=== PATIENT | male | born 1950 | race Caucasian/White ===

== ENCOUNTER 2023-03-05 06:46 | Emergency (ER) | payer MEDICARE, MEDICAID ==
[~2023-03-05] VITALS: Ht 177.8 cm; Wt 73.0 kg
[~2023-03-05 06:46] MED LIST: IBUP-2028 MT; PERM60CR4 TP; PIPE118S11 TP
[2023-03-05 06:51] VITALS: BP 135/82; PULSE 70; RESP 18; TEMP 98.8; O2SAT 97
== END 2023-03-05 08:00 | disposition left against medical advice (07) ==
LOC: ER 06:58
DX: T14.8XXA Other injury of unspecified body region, initial encounter (principal); Z53.21 Procedure and treatment not carried out due to patient leaving prior to being seen by health care provider
CPT/HCPCS: 99281

== ENCOUNTER 2023-12-05 00:46 | Emergency (ER) | payer MEDICARE, MEDICAID ==
[~2023-12-05] VITALS: Ht 175.3 cm; Wt 73.0 kg
[~2023-12-05 00:46] MED LIST changes: -IBUP-2028 MT; +LIDO700A30 TOP; -PERM60CR4 TP; -PIPE118S11 TP
[2023-12-05 01:26] VITALS: PULSE 80; RESP 24; O2SAT 99
[2023-12-05] MEDS: ALBUTEROL (0.5%) 2.5MG/0.5ML NEB HHN ONE ×2 (01:26→03:09)
[2023-12-05 01:38] LABS: BG BASE EXCESS 2.3 mmol/L (-2.0-3.0); BG CARBOXYHEMOGLOBIN 2.8 % (0.5-1.5); BG DEOXYHEMOGLOBIN 5.9 % (0.0-5.0); BG FRACTION INSPIRED OXYGEN 21; BG HCO3 ACT 27.4 mmol/L (21.0-28.0); BG METHEMOGLOBIN 0.1 % (0.5-1.5); BG OXYGEN SATURATION 93.9 % (94.0-98.0); BG OXYHEMOGLOBIN 91.2 % (94.0-98.0); BG PCO2 44.4 mmHg (35.0-48.0); BG PH 7.408 (7.350-7.450); BG PO2 74.4 mmHg (83.0-108.0); BG SAMPLE SITE RIGHT RADIAL; BG TOTAL HEMOGLOBIN 12.7 g/dL (13.5-17.5); BG VENT MODE ROOM AIR
[2023-12-05 01:51] LABS: BASOPHILS % 0.6 % (0.0-2.0); EOSINOPHILS % 4.4 % (0.0-5.0); HEMATOCRIT. 35.3 % (42.0-52.0); HEMOGLOBIN. 11.9 g/dL (14.0-18.0); LYMPHOCYTES % 17.3 % (20.0-50.0); MEAN CORPUSCULAR HEMOGLOBIN 28.6 pg (28.0-32.0); MEAN CORPUSCULAR HGB CONC 33.7 g/dL (31.0-37.0); MEAN PLATELET VOLUME 7.1 fl (7.4-10.4); MONOCYTES % 8.2 % (2.0-8.0); NEUTROPHILS % 69.5 % (40.0-76.0); PLATELET 210 x1000/uL (130-400); RED BLOOD CELL COUNT 4.15 mill/uL (4.7-6.1); RED CELL DISTRIBUTION WIDTH 14.5 % (11.6-14.6); WHITE BLOOD COUNT 6.4 x1000/uL (4.5-11.0)
[2023-12-05 02:08] LABS: CHLORIDE 107 mEq/L (98-107); POTASSIUM 3.8 mEq/L (3.5-5.1); SODIUM 140 mEq/L (136-145)
[2023-12-05 02:09] LABS: CARBON DIOXIDE 30 mEq/L (21-32)
[2023-12-05 02:13] LABS: PARTIAL THROMBOPLASTIN TIME 38.4 sec (23.4-31.0); PROTHROMBIN TIME 10.8 sec (9.6-11.0)
[2023-12-05 02:14] LABS: GLUCOSE 98 mg/dL (70-105); UREA NITROGEN BLOOD 20 mg/dL (9-23)
[2023-12-05 02:15] LABS: TROPONIN I HIGH SENSITIVITY 4 ng/L (3.0-53)
[2023-12-05 02:28] LABS: CREATININE 1.4 mg/dL (0.6-1.3); ETHANOL BLOOD < 10 mg/dL (<10)
[2023-12-05] MEDS: METHYLPREDNISOLONE SOD SUCC 125MG/2ML (ACT-O-VIAL) IV ONE (03:01)
[2023-12-05] MEDS: ACETAMINOPHEN 1000MG/100ML 100 ML IV ONE (03:01)
[2023-12-05] MEDS: IPRATROPIUM BROMIDE (0.02%) 0.5MG/2.5ML NEB HHN ONE (03:08)
[2023-12-05 03:09] VITALS: PULSE 75; RESP 24; O2SAT 91
[2023-12-05 05:52] LABS: CLARITY URINE CLEAR (CLEAR); COLOR URINE YELLOW (YELLOW); GLUCOSE URINE NEGATIVE (NEGATIVE); KETONES URINE NEGATIVE (NEGATIVE); LEUKOCYTE ESTERASE URINE NEGATIVE (NEGATIVE); NITRITE URINE NEGATIVE (NEGATIVE); OCCULT BLOOD URINE NEGATIVE (NEGATIVE); PH URINE 6.5 (4.5-8.0); PROTEIN URINE NEGATIVE (NEGATIVE); SPECIFIC GRAVITY URINE 1.012 (1.005-1.030)
[2023-12-05] MEDS ORDERED: IPRATROPIUM/ALBUTEROL 0.5-3(2.5)MG/3ML NEB HHN PRN (06:30)
[2023-12-05] MEDS ORDERED: DOCUSATE SODIUM 100MG CAPSULE PO PRN (06:30)
[2023-12-05] MEDS ORDERED: MAGNESIUM/ALUMINUM HYDROXIDE/SIMETHICONE 30ML UDC PO PRN (06:30)
[2023-12-05] MEDS ORDERED: AMLODIPINE 5MG TABLET PO SCH (06:30)
[2023-12-05] MEDS ORDERED: CLONIDINE 0.1MG TABLET PO PRN (06:30)
[2023-12-05] MEDS ORDERED: ONDANSETRON HCL 4MG/2ML INJ IV PRN (06:30)
[2023-12-05] MEDS ORDERED: LACTATED RINGERS 1,000 ML IV SCH (06:30)
[2023-12-05] MEDS ORDERED: ACETAMINOPHEN 325MG TABLET PO PRN ×2 (06:30)
[2023-12-05] MEDS ORDERED: GUAIFENESIN 200MG/10ML SUGAR FREE UDC PO PRN (06:30)
[2023-12-05 06:45] VITALS: BP 118/70; PULSE 90; RESP 17; TEMP 36.78072; O2SAT 97
[2023-12-05] MEDS ORDERED: ASPIRIN 81MG EC TABLET PO SCH (09:00)
[2023-12-05] MEDS ORDERED: ENOXAPARIN 40MG/0.4ML SYR SUBCUT SCH (09:00)
[2023-12-05] MEDS ORDERED: BUDESONIDE 0.5MG/2ML NEB HHN SCH (09:00)
[2023-12-05 09:09] LABS: IRON 74 ug/dL (65-175); TRIGLYCERIDE 86 mg/dL (0-150)
[2023-12-05 09:10] LABS: LDL CHOLESTEROL 81 mg/dL (5-100)
[2023-12-05 09:11] LABS: CHOLESTEROL 154 mg/dL (<200); HDL CHOLESTEROL 57 mg/dL (>55)
[2023-12-05 09:12] LABS: TOTAL IRON BINDING CAPACITY 254 ug/dl (250-425)
[2023-12-05 09:16] LABS: T4 FREE 0.95 ng/dL (0.89-1.76); THYROID STIMULATING HORMONE 0.72 uIU/mL (0.55-4.78)
[2023-12-05] MEDS ORDERED: IPRATROPIUM/ALBUTEROL 0.5-3(2.5)MG/3ML NEB HHN SCH (12:00)
[2023-12-05] MEDS ORDERED: FAMOTIDINE 20MG TABLET PO SCH (21:00)
[2023-12-06 10:34] LABS: *AMPHETAMINES SCREEN URINE NEGATIVE (NEGATIVE); *BARBITURATES SCREEN URINE NEGATIVE (NEGATIVE)
[2023-12-06 10:35] LABS: *BENZODIAZEPINES SCREEN URINE NEGATIVE (NEGATIVE); *COCAINE SCREEN URINE PRESUMPTIVE POSITIVE (NEGATIVE); CANNABINOID URINE SCREEN NEGATIVE (NEGATIVE); ECSTASY MDMA SCREEN URINE NEGATIVE (NEGATIVE); METHADONE URINE SCREEN NEGATIVE (NEGATIVE); OPIATES URINE SCREEN NEGATIVE (NEGATIVE); PHENCYCLIDINE URINE SCREEN NEGATIVE (NEGATIVE)
[2024-01-03] MEDS ORDERED: CEPH500C2 MT (17:32)
[2024-01-09] MEDS ORDERED: SULF1TAB48 MT (14:31)
[2024-01-15] MEDS ORDERED: LOSA100T33 PO (14:28)
[2024-01-15] MEDS ORDERED: ATOR10TA69 PO (14:28)
== END 2023-12-05 06:57 | disposition short-term general hospital (02) ==
LOC: ER 00:46
DX: S00.01XA Abrasion of scalp, initial encounter (principal); S00.03XA Contusion of scalp, initial encounter; J96.01 Acute respiratory failure with hypoxia; J44.1 Chronic obstructive pulmonary disease with (acute) exacerbation; F17.210 Nicotine dependence, cigarettes, uncomplicated; F14.10 Cocaine abuse, uncomplicated; I11.0 Hypertensive heart disease with heart failure; I50.9 Heart failure, unspecified; E11.9 Type 2 diabetes mellitus without complications; D64.9 Anemia, unspecified; Z86.73 Personal history of transient ischemic attack (TIA), and cerebral infarction without residual deficits; Z88.0 Allergy status to penicillin; W18.39XA Other fall on same level, initial encounter; Y93.89 Activity, other specified; Y92.89 Other specified places as the place of occurrence of the external cause; Y99.8 Other external cause status
CPT/HCPCS: 80061; 80305; 80048; 81003; 80320; 82728; 82962; 83880; 84439; 83540; 83550; 84443; 85025; 85610; 85730; 84484; 36415; 71045; 70450; 72125; 94640; 82805; 82375; 93005; 96365; 96375; 99285; 36600; J2919; G0480; J0131

== ENCOUNTER 2024-05-24 09:22 | Emergency (ER) | payer MEDICARE, MEDICAID ==
[~2024-05-24] VITALS: Ht 180.3 cm; Wt 59.0 kg
[~2024-05-24 09:22] MED LIST changes: +ATOR10TA69 PO; +LOSA100T33 PO
[2024-05-24 09:26] VITALS: O2SAT 96
[2024-05-24 10:38] LABS: CHLORIDE 101 mEq/L (98-107); POTASSIUM 4.3 mEq/L (3.5-5.1); SODIUM 138 mEq/L (136-145)
[2024-05-24 10:39] LABS: CALCIUM 9.8 mg/dL (8.7-10.4); CARBON DIOXIDE 30 mEq/L (21-32)
[2024-05-24 10:44] LABS: GLUCOSE 103 mg/dL (70-105); UREA NITROGEN BLOOD 23 mg/dL (9-23)
[2024-05-24 10:46] LABS: BASOPHILS % 0.5 % (0.0-2.0); EOSINOPHILS % 5.7 % (0.0-5.0); HEMATOCRIT. 40.4 % (42.0-52.0); HEMOGLOBIN. 12.8 g/dL (14.0-18.0); LYMPHOCYTES % 28.6 % (20.0-50.0); MEAN CORPUSCULAR HEMOGLOBIN 26.5 pg (28.0-32.0); MEAN CORPUSCULAR HGB CONC 31.8 g/dL (31.0-37.0); MEAN CORPUSCULAR VOLUME 83.5 fL (80.0-94.0); MEAN PLATELET VOLUME 7.8 fl (7.4-10.4); MONOCYTES % 9.5 % (2.0-8.0); NEUTROPHILS % 55.7 % (40.0-76.0); PLATELET 208 x1000/uL (130-400); RED BLOOD CELL COUNT 4.84 mill/uL (4.7-6.1)
[2024-05-24 10:47] LABS: TROPONIN I HIGH SENSITIVITY < 4 ng/L (3.0-53)
[2024-05-24 10:56] VITALS: BP 134/81; PULSE 59; RESP 18; TEMP 36.7; O2SAT 96
[2024-05-24] MEDS: KETOROLAC 30MG/ML VIAL IV STA (10:56)
== END 2024-05-24 11:26 | disposition home or self-care (01) ==
LOC: ER 09:37
DX: R07.89 Other chest pain (principal); E11.9 Type 2 diabetes mellitus without complications; I11.0 Hypertensive heart disease with heart failure; I50.9 Heart failure, unspecified; J44.9 Chronic obstructive pulmonary disease, unspecified; F03.90 Unspecified dementia, unspecified severity, without behavioral disturbance, psychotic disturbance, mood disturbance, and anxiety; F19.90 Other psychoactive substance use, unspecified, uncomplicated; Z79.899 Other long term (current) drug therapy; Z86.73 Personal history of transient ischemic attack (TIA), and cerebral infarction without residual deficits; Z88.0 Allergy status to penicillin; Z88.1 Allergy status to other antibiotic agents
CPT/HCPCS: 99284; 96374; 71045; 80048; 83880; 85025; 84484; 36415; J1885; A4606

== ENCOUNTER 2024-11-25 07:02 | Inpatient (IN) | payer MEDICARE, MEDICAID ==
[~2024-11-25] VITALS: Ht 172.7 cm; Wt 71.4 kg
[2024-11-25 08:35] LABS: CREATININE 1.3 mg/dL (0.6-1.3)
[2024-11-25 08:36] LABS: ETHANOL BLOOD < 10 mg/dL (<10); UREA NITROGEN BLOOD 28 mg/dL (9-23)
[2024-11-25 08:37] LABS: ASPARTATE AMINOTRANSFERASE 22 IU/L (<34); BILIRUBIN DIRECT 0.1 mg/dL (<=3.0)
[2024-11-25 08:38] LABS: BILIRUBIN TOTAL 0.4 mg/dL (0.1-1.0); PROTEIN TOTAL 6.4 g/dL (6.0-8.3)
[2024-11-25] MEDS: IPRATROPIUM/ALBUTEROL 0.5-3(2.5)MG/3ML NEB HHN ONE (08:46)
[2024-11-25 08:52] VITALS: PULSE 50; RESP 18; O2SAT 98
[2024-11-25 09:07] LABS: BASOPHILS % 0.8 % (0.0-2.0); EOSINOPHILS % 9.6 % (0.0-5.0); HEMATOCRIT. 41.5 % (42.0-52.0); HEMOGLOBIN. 13.9 g/dL (14.0-18.0); LYMPHOCYTES % 16.1 % (20.0-50.0); MEAN PLATELET VOLUME 7.9 fl (7.4-10.4); MONOCYTES % 9.0 % (2.0-8.0); NEUTROPHILS % 64.5 % (40.0-76.0); PLATELET 162 x1000/uL (130-400); RED BLOOD CELL COUNT 4.85 mill/uL (4.7-6.1); RED CELL DISTRIBUTION WIDTH 14.9 % (11.6-14.6)
[2024-11-25 09:17] LABS: INR 0.9
[2024-11-25 10:18] LABS: BG DEOXYHEMOGLOBIN 40.4 % (0.0-5.0)
[2024-11-25 10:36] LABS: INFLUENZA TYPE A Presumptive Negative (Pres. Neg.); INFLUENZA TYPE B Presumptive Negative (Pres. Neg.)
[2024-11-25 10:37] LABS: RESPIRATORY SYNCYTIAL VIRUS Not Detected (Not Detectd)
[2024-11-25] MEDS: AMLODIPINE 10MG TABLET PO SCH (11:30)
[2024-11-25] MEDS ORDERED: ACETAMINOPHEN 325MG TABLET PO PRN ×2 (11:30)
[2024-11-25] MEDS ORDERED: ONDANSETRON HCL 4MG/2ML INJ IV PRN (11:30)
[2024-11-25] MEDS ORDERED: IPRATROPIUM/ALBUTEROL 0.5-3(2.5)MG/3ML NEB HHN PRN (11:45)
[2024-11-25] MEDS: GUAIFENESIN/DM 600MG/30MG ER TAB 12HR PO SCH (11:45)
[2024-11-25] MEDS ORDERED: HYDRALAZINE 20MG/ML VIAL IV PRN (12:15)
[2024-11-25 12:30] VITALS: BP 159/87; PULSE 71; RESP 18; TEMP 36.6; O2SAT 97
[2024-11-25 13:00] LABS: CLARITY URINE CLEAR (CLEAR); COLOR URINE YELLOW (YELLOW); GLUCOSE URINE NEGATIVE (NEGATIVE); KETONES URINE NEGATIVE (NEGATIVE); LEUKOCYTE ESTERASE URINE NEGATIVE (NEGATIVE); NITRITE URINE NEGATIVE (NEGATIVE); OCCULT BLOOD URINE NEGATIVE (NEGATIVE); PH URINE 6.5 (4.5-8.0); PROTEIN URINE NEGATIVE (NEGATIVE); SPECIFIC GRAVITY URINE 1.018 (1.005-1.030); UROBILINOGEN URINE 0.2 E.U./dL (0.2-1.0)
[2024-11-25 13:20] LABS: *AMPHETAMINES SCREEN URINE NEGATIVE (NEGATIVE); *BARBITURATES SCREEN URINE NEGATIVE (NEGATIVE); *BENZODIAZEPINES SCREEN URINE NEGATIVE (NEGATIVE); *COCAINE SCREEN URINE PRESUMPTIVE POSITIVE (NEGATIVE); CANNABINOID URINE SCREEN NEGATIVE (NEGATIVE); METHADONE URINE SCREEN NEGATIVE (NEGATIVE); OPIATES URINE SCREEN NEGATIVE (NEGATIVE); PHENCYCLIDINE URINE SCREEN NEGATIVE (NEGATIVE)
[2024-11-25 13:21] LABS: ECSTASY MDMA SCREEN URINE NEGATIVE (NEGATIVE)
[2024-11-25 14:11] LABS: PHOSPHORUS 2.8 mg/dL (2.5-4.9)
[2024-11-25] MEDS: FOLIC ACID 1 MG, THIAMINE HCL 100 MG, MVI, ADULT NO.1 10 ML in DEXTROSE 5% WATER 1,000 ML IV ONE (14:14)
[2024-11-25 15:36] VITALS: BP 159/87; PULSE 71; RESP 18; TEMP 36.5848
[2024-11-25 16:46] VITALS: BP 112/67; PULSE 53; RESP 20; TEMP 37; O2SAT 98
[2024-11-25] MEDS: FERROUS SULFATE 300MG/5ML UDC PO SCH (18:07)
[2024-11-25] MEDS: MONTELUKAST SODIUM 10MG TABLET PO SCH (18:07)
[2024-11-25] MEDS ORDERED: DEXTROSE 50% WATER 50ML SYRINGE IV PRN (18:30)
[2024-11-25 20:00] VITALS: BP 169/78; PULSE 62; RESP 20; TEMP 36.6; O2SAT 97
[2024-11-25 20:25] LABS: TROPONIN I HIGH SENSITIVITY 5 ng/L (3.0-53)
[2024-11-25] MEDS: INSULIN LISPRO 100 UNITS/ML SUBCUT SCH (21:00)
[2024-11-25] MEDS: BLOOD SUGAR DIAGNOSTIC STRIP TEST SCH (21:31)
[2024-11-25] MEDS: ENOXAPARIN 40MG/0.4ML SYR SUBCUT SCH (21:33)
[2024-11-25] MEDS: ATORVASTATIN CALCIUM 40MG TABLET PO SCH (21:33)
[2024-11-26] VITALS (8 sets, daily range): BP systolic 144–184; BP diastolic 70–78; PULSE 64–95; RESP 18–22; TEMP 36.6–37.1; O2SAT 95–98
[2024-11-26 06:57] LABS: BASOPHILS % 0.8 % (0.0-2.0); EOSINOPHILS % 9.7 % (0.0-5.0); HEMATOCRIT. 42.5 % (42.0-52.0); HEMOGLOBIN. 14.2 g/dL (14.0-18.0); LYMPHOCYTES % 18.0 % (20.0-50.0); MEAN PLATELET VOLUME 8.2 fl (7.4-10.4); MONOCYTES % 8.6 % (2.0-8.0); NEUTROPHILS % 62.9 % (40.0-76.0); PLATELET 186 x1000/uL (130-400); RED BLOOD CELL COUNT 5.00 mill/uL (4.7-6.1); RED CELL DISTRIBUTION WIDTH 15.0 % (11.6-14.6)
[2024-11-26 07:08] LABS: CREATININE 1.1 mg/dL (0.6-1.3); TRIGLYCERIDE 92 mg/dL (0-150); UREA NITROGEN BLOOD 18 mg/dL (9-23)
[2024-11-26 07:09] LABS: LDL CHOLESTEROL 75 mg/dL (5-100); TROPONIN I HIGH SENSITIVITY 4 ng/L (3.0-53)
[2024-11-26 07:12] LABS: T4 FREE 1.03 ng/dL (0.89-1.76)
[2024-11-26] MEDS: PREDNISONE 20MG TABLET PO SCH (08:59)
[2024-11-26] MEDS: AZITHROMYCIN 500 MG TABLET PO SCH (08:59)
[2024-11-26] MEDS: CLONIDINE 0.1MG TABLET PO PRN (09:00)
[2024-11-26] MEDS: IPRATROPIUM/ALBUTEROL 0.5-3(2.5)MG/3ML NEB HHN SCH (12:37)
[2024-11-26 12:58] LABS: ASPARTATE AMINOTRANSFERASE 27 IU/L (<34); BILIRUBIN DIRECT 0.1 mg/dL (<=3.0)
[2024-11-26 12:59] LABS: BILIRUBIN TOTAL 0.5 mg/dL (0.1-1.0); PROTEIN TOTAL 6.4 g/dL (6.0-8.3)
[2024-11-26] MEDS: BUDESONIDE 0.5MG/2ML NEB HHN SCH (20:51)
[2024-11-26] MEDS: LOSARTAN 50 MG TABLET PO SCH (21:49)
[2024-11-27 00:27] VITALS: BP 149/93; PULSE 104; RESP 19; TEMP 36.9; O2SAT 95
[2024-11-27 01:38] VITALS: PULSE 87; RESP 20; O2SAT 95
[2024-11-27 04:00] VITALS: BP 142/77; PULSE 101; RESP 19; TEMP 36.8; O2SAT 95
[2024-11-27] MEDS ORDERED: HYDRALAZINE 10 MG in SODIUM CHLORIDE 0.9% 49.5 ML IV PRN (09:00)
[2024-11-27] MEDS: CLONIDINE 0.1MG TABLET PO NR (10:55)
[2024-11-27 11:44] LABS: BASOPHILS % 0.7 % (0.0-2.0); EOSINOPHILS % 4.5 % (0.0-5.0); HEMATOCRIT. 43.1 % (42.0-52.0); HEMOGLOBIN. 14.3 g/dL (14.0-18.0); LYMPHOCYTES % 16.4 % (20.0-50.0); MEAN PLATELET VOLUME 8.1 fl (7.4-10.4); MONOCYTES % 8.4 % (2.0-8.0); NEUTROPHILS % 70.0 % (40.0-76.0); PLATELET 193 x1000/uL (130-400); RED BLOOD CELL COUNT 5.06 mill/uL (4.7-6.1); RED CELL DISTRIBUTION WIDTH 14.9 % (11.6-14.6)
[2024-11-27 12:03] LABS: CREATININE 1.1 mg/dL (0.6-1.3); UREA NITROGEN BLOOD 19 mg/dL (9-23)
[2024-11-27] MEDS ORDERED: FLUT1DIS3 INH (13:51)
[2024-11-27 15:55] VITALS: BP 132/91; PULSE 100; RESP 19; TEMP 97.9
== END 2024-11-27 16:44 | disposition home or self-care (01) | DRG 189 ==
LOC: ER 07:02 → 7WST 11:01 → EDBEDREQ 11:17 → EDBEDREQTM 11:17 → ENRESERV 11:32 → 7EST 11-27 08:36
PROVIDERS: ADMIT Hospitalist; ATTEND Hospitalist
DX: J96.01 Acute respiratory failure with hypoxia (principal); J44.1 Chronic obstructive pulmonary disease with (acute) exacerbation; I50.22 Chronic systolic (congestive) heart failure; I11.0 Hypertensive heart disease with heart failure; Z20.822 Contact with and (suspected) exposure to COVID-19; F19.10 Other psychoactive substance abuse, uncomplicated; F32.A Depression, unspecified; F17.210 Nicotine dependence, cigarettes, uncomplicated; E11.9 Type 2 diabetes mellitus without complications; Z86.73 Personal history of transient ischemic attack (TIA), and cerebral infarction without residual deficits; Z88.0 Allergy status to penicillin
CPT/HCPCS: 36415; 71045; 80048; 80061; 80076; 80305; 80320; 81003; 82375; 82550; 82803; 82962; 83036; 83540; 83550; 83605; 83735; 83880; 84100; 84145; 84439; 84443; 84484; 85025; 85379; 87420; 87426; 87804; 93005; 94070; 94640; 94664; 98960; 99285; A4606; J1650; J1815; J3411; J3490; J7070; J7512; J7626; G0480

== ENCOUNTER 2024-12-09 15:08 | Emergency (ER) | payer MEDICARE, MEDICAID ==
[~2024-12-09] VITALS: Ht 170.2 cm; Wt 75.0 kg
[~2024-12-09 15:08] MED LIST changes: +FLUT1DIS3 INH
[2024-12-09 15:21] VITALS: O2SAT 99
[2024-12-09 15:28] VITALS: BP 164/81; PULSE 81; RESP 18; TEMP 36.9; O2SAT 95
[2024-12-09] MEDS ORDERED: [UNRECOGNIZED DRUG - CODE] TP (17:16)
[2024-12-09] MEDS ORDERED: SALI1ADH TD (17:16)
== END 2024-12-09 17:31 | disposition home or self-care (01) ==
LOC: ER 15:08
DX: B07.0 Plantar wart (principal); I11.0 Hypertensive heart disease with heart failure; I50.9 Heart failure, unspecified; E11.9 Type 2 diabetes mellitus without complications; J44.9 Chronic obstructive pulmonary disease, unspecified; Z86.73 Personal history of transient ischemic attack (TIA), and cerebral infarction without residual deficits; Z79.899 Other long term (current) drug therapy; Z88.0 Allergy status to penicillin; Z88.1 Allergy status to other antibiotic agents
CPT/HCPCS: 73660; 99283